=== PATIENT | female | born 2000 | race Two or more races ===

== ENCOUNTER 2023-11-15 17:13 | Emergency (ER) | payer OTHER | END 2023-11-15 19:48 | disposition home or self-care (01) | LOC: JD.ED 17:13 | DX: S20.219A Contusion of unspecified front wall of thorax, initial encounter (principal); S00.33XA Contusion of nose, initial encounter; T22.111A Burn of first degree of right forearm, initial encounter; V89.2XXA Person injured in unspecified motor-vehicle accident, traffic, initial encounter | CPT/HCPCS: 70160; 70160-26; 71046; 71046-26; 73110-26-RT; 73110-RT; 99283; 99284 ==